=== PATIENT | male | born 1980 | race Caucasian/White ===

== ENCOUNTER 2017-04-24 20:19 | Inpatient (IN) | payer MEDICAID, OTHER ==
[2017-04-24] MEDS: HYDROCODONE/APAP (5/325) TAB PO (21:43)
[2017-04-24 22:09] LABS: ADD UMIC YES; UR ASCORBIC ACID NEGATIVE (NEGATIVE); UR BACTERIA FEW /HPF (NONE SEEN); UR BILIRUBIN (Dip) NEGATIVE (NEGATIVE); UR BLOOD (Dip) 3+ mg/dL (NEGATIVE); UR CLARITY SLIGHTLY CLOUDY (CLEAR); UR COLOR YELLOW (YELLOW); UR GLUCOSE (Dip) NEGATIVE (NEGATIVE); UR KETONES (Dip) NEGATIVE (NEGATIVE); UR LEUKOCYTE ESTERASE (Dip) NEGATIVE Leu/ul (NEGATIVE); UR NITRITE (Dip) NEGATIVE (NEGATIVE); UR RBC > 182 /HPF (0-5); UR SPECIFIC GRAVITY (Dip) 1.019 (1.003-1.030); UR TOTAL PROTEIN (Dip) 3+ mg/dl (NEGATIVE); UR UROBILINOGEN (Dip) NEGATIVE (NEGATIVE); UR WBC 10 /HPF (0-5)
[2017-04-24] MEDS: HYDROmorphONE 1 MG/ML SYG IV (22:48)
[2017-04-25] MEDS: HYDROmorphONE 0.5 MG/0.5 ML SYG IV (01:10)
[2017-04-25 01:15] LABS: ADD MAN DIFF? NO
[2017-04-25 01:16] LABS: WHITE BLOOD COUNT 14.4 10^3/ul (4.8-10.8)
[2017-04-25 01:16] LABS: BASOPHILS % 0.2 % (0.0-2.0); EOSINOPHILS % 0.1 % (0.0-7.0); HEMATOCRIT 43.9 % (42.0-52.0); HEMOGLOBIN 15.2 g/dl (14.0-18.0); LYMPHOCYTES # 1.5 10^3/ul (0.8-2.9); LYMPHOCYTES % 10.4 % (15.0-51.0); MEAN CORPUSCULAR HEMOGLOBIN 30.5 pg (29.0-33.0); MEAN CORPUSCULAR HGB CONC 34.6 g/dl (32.0-37.0); MEAN PLATELET VOLUME 10.2 fl (7.4-10.4); MONOCYTE # 0.7 10^3/ul (0.3-0.9); MONOCYTES % 4.6 % (0.0-11.0); NEUTROPHIL # 12.1 10^3/ul (1.6-7.5); NEUTROPHILS % 84.1 % (39.0-77.0); PLATELET COUNT 342 10^3/UL (140-415); RED BLOOD COUNT 4.99 10^6/ul (4.70-6.10); RED CELL DISTRIBUTION WIDTH 12.5 % (11.5-14.5)
[2017-04-25 01:36] LABS: ALANINE AMINOTRANSFERASE 62 IU/L (13-69); ALBUMIN 4.6 g/dl (3.3-4.9); ALBUMIN/GLOBULIN RATIO 1.43; ALKALINE PHOSPHATASE 82 IU/L (42-121); ANION GAP 16 (8-16); ASPARTATE AMINO TRANSFERASE 38 IU/L (15-46); BILIRUBIN,INDIRECT 0.5 mg/dl (0-1.1); BILIRUBIN,TOTAL 0.5 mg/dl (0.2-1.3); BLOOD UREA NITROGEN 18 mg/dl (7-20); CALCIUM 9.5 mg/dl (8.4-10.2); CARBON DIOXIDE 26 mmol/L (21-31); CHLORIDE 104 mmol/L (97-110); CREATININE 1.47 mg/dl (0.61-1.24); GLUCOSE 99 mg/dl (70-220); POTASSIUM 3.9 mmol/L (3.5-5.1); SODIUM 142 mmol/L (135-144); TOTAL PROTEIN 7.8 g/dl (6.1-8.1)
[2017-04-25] MEDS: HYDROmorphONE 1 MG/ML SYG IV ×5 (03:11→14:30)
[2017-04-25] MEDS: SOD CHLORIDE 0.9% 1,000 ML IV ×4 (03:16→17:36)
[2017-04-25] MEDS ORDERED: HYDROmorphONE 1 MG/ML SYG (04:12)
[2017-04-25] MEDS ORDERED: NACL 0.9% 3 ML SYG IV (05:00)
[2017-04-25] MEDS: TAMSULOSIN (SR) 0.4 MG CAP PO ×2 (05:11→20:46)
[2017-04-25 06:16] LABS: MAGNESIUM 1.7 mg/dl (1.7-2.5)
[2017-04-25 06:16] LABS: CHOL/HDL RATIO 4.4 RATIO; CHOLESTEROL 172 mg/dl (100-200); HDL CHOLESTEROL 39 mg/dl (28-63); LDL CHOLESTEROL,CALCULATED 93 mg/dl; TRIGLYCERIDES 198 mg/dl (0-149)
[2017-04-25 07:14] LABS: HEMOGLOBIN A1C 5.1 % (0-5.9)
[2017-04-25] MEDS: CEFTRIAXONE 1 GM/50 ML (PMX) 50 ML IVPB (11:41)
[2017-04-25] MEDS: HYDROmorphONE 2 MG/ML SYG IV ×2 (15:58→20:46)
[2017-04-25] MEDS: ONDANSETRON 4 MG INJ IV (17:36)
[2017-04-26] MEDS: SOD CHLORIDE 0.9% 1,000 ML IV ×3 (04:35→20:24)
[2017-04-26] MEDS: HYDROmorphONE 2 MG/ML SYG IV ×4 (05:01→20:28)
[2017-04-26 05:12] LABS: ADD MAN DIFF? NO
[2017-04-26 05:24] LABS: WHITE BLOOD COUNT 11.7 10^3/ul (4.8-10.8)
[2017-04-26 05:24] LABS: BASOPHILS % 0.2 % (0.0-2.0); EOSINOPHILS % 0.2 % (0.0-7.0); HEMATOCRIT 42.1 % (42.0-52.0); HEMOGLOBIN 13.9 g/dl (14.0-18.0); LYMPHOCYTES # 1.5 10^3/ul (0.8-2.9); LYMPHOCYTES % 12.6 % (15.0-51.0); MEAN CORPUSCULAR HEMOGLOBIN 29.4 pg (29.0-33.0); MEAN CORPUSCULAR VOLUME 89.2 fl (82.0-101.0); MEAN PLATELET VOLUME 10.1 fl (7.4-10.4); MONOCYTE # 0.9 10^3/ul (0.3-0.9); MONOCYTES % 7.9 % (0.0-11.0); NEUTROPHIL # 9.2 10^3/ul (1.6-7.5); NEUTROPHILS % 78.8 % (39.0-77.0); PLATELET COUNT 247 10^3/UL (140-415); RED BLOOD COUNT 4.72 10^6/ul (4.70-6.10); RED CELL DISTRIBUTION WIDTH 12.6 % (11.5-14.5)
[2017-04-26 05:50] LABS: PHOSPHORUS 2.8 mg/dl (2.5-4.9)
[2017-04-26 05:50] LABS: MAGNESIUM 1.9 mg/dl (1.7-2.5)
[2017-04-26 06:01] LABS: ALANINE AMINOTRANSFERASE 47 IU/L (13-69); ALBUMIN 3.9 g/dl (3.3-4.9); ALBUMIN/GLOBULIN RATIO 1.44; ALKALINE PHOSPHATASE 68 IU/L (42-121); ANION GAP 15 (8-16); ASPARTATE AMINO TRANSFERASE 24 IU/L (15-46); BILIRUBIN,INDIRECT 0.6 mg/dl (0-1.1); BILIRUBIN,TOTAL 0.6 mg/dl (0.2-1.3); BLOOD UREA NITROGEN 17 mg/dl (7-20); CALCIUM 8.9 mg/dl (8.4-10.2); CARBON DIOXIDE 25 mmol/L (21-31); CHLORIDE 103 mmol/L (97-110); CREATININE 1.72 mg/dl (0.61-1.24); GLUCOSE 102 mg/dl (70-220); POTASSIUM 3.7 mmol/L (3.5-5.1); SODIUM 139 mmol/L (135-144); TOTAL PROTEIN 6.6 g/dl (6.1-8.1)
[2017-04-26] MEDS: KETOROLAC 30 MG INJ IV (10:13)
[2017-04-26] MEDS: LACTATED RINGER'S 500 ML IV (10:14)
[2017-04-26] MEDS: CEFTRIAXONE 1 GM/50 ML (PMX) 50 ML IVPB (11:26)
[2017-04-26] MEDS: TAMSULOSIN (SR) 0.4 MG CAP PO (20:21)
[2017-04-27] MEDS: HYDROmorphONE 2 MG/ML SYG IV (01:20)
[2017-04-27] MEDS: SOD CHLORIDE 0.9% 1,000 ML IV ×3 (04:02→20:46)
[2017-04-27 05:09] LABS: ADD MAN DIFF? NO
[2017-04-27 05:23] LABS: WHITE BLOOD COUNT 14.5 10^3/ul (4.8-10.8)
[2017-04-27 05:23] LABS: BASOPHILS % 0.1 % (0.0-2.0); HEMOGLOBIN 13.4 g/dl (14.0-18.0); LYMPHOCYTES # 1.3 10^3/ul (0.8-2.9); MEAN CORPUSCULAR HEMOGLOBIN 30.7 pg (29.0-33.0); MEAN CORPUSCULAR HGB CONC 34.4 g/dl (32.0-37.0); MEAN CORPUSCULAR VOLUME 89.2 fl (82.0-101.0); MEAN PLATELET VOLUME 10.3 fl (7.4-10.4); MONOCYTE # 1.1 10^3/ul (0.3-0.9); MONOCYTES % 7.6 % (0.0-11.0); NEUTROPHILS % 82.8 % (39.0-77.0); PLATELET COUNT 220 10^3/UL (140-415); RED BLOOD COUNT 4.37 10^6/ul (4.70-6.10); RED CELL DISTRIBUTION WIDTH 12.4 % (11.5-14.5)
[2017-04-27 05:44] LABS: MAGNESIUM 1.7 mg/dl (1.7-2.5)
[2017-04-27 05:44] LABS: PHOSPHORUS 3.1 mg/dl (2.5-4.9)
[2017-04-27 05:52] LABS: ALANINE AMINOTRANSFERASE 52 IU/L (13-69); ALBUMIN 3.5 g/dl (3.3-4.9); ALBUMIN/GLOBULIN RATIO 1.25; ALKALINE PHOSPHATASE 67 IU/L (42-121); ANION GAP 12 (8-16); ASPARTATE AMINO TRANSFERASE 39 IU/L (15-46); BILIRUBIN,INDIRECT 0.4 mg/dl (0-1.1); BILIRUBIN,TOTAL 0.4 mg/dl (0.2-1.3); BLOOD UREA NITROGEN 19 mg/dl (7-20); CALCIUM 8.5 mg/dl (8.4-10.2); CARBON DIOXIDE 24 mmol/L (21-31); CHLORIDE 105 mmol/L (97-110); CREATININE 1.83 mg/dl (0.61-1.24); GLUCOSE 98 mg/dl (70-220); POTASSIUM 4.3 mmol/L (3.5-5.1); SODIUM 137 mmol/L (135-144); TOTAL PROTEIN 6.3 g/dl (6.1-8.1)
[2017-04-27] MEDS: ACETAMINOPHEN 325 MG TAB PO ×2 (08:24→18:28)
[2017-04-27] MEDS: INFLUENZA VIRUS VACCINE 0.5 ML (DISPENSING) IM* (08:25)
[2017-04-27] MEDS: CEFTRIAXONE 1 GM/50 ML (PMX) 50 ML IVPB (11:57)
[2017-04-27] MEDS: TAMSULOSIN (SR) 0.4 MG CAP PO (20:43)
[2017-04-28] MEDS: HYDROmorphONE 2 MG/ML SYG IV (01:09)
[2017-04-28] MEDS: SOD CHLORIDE 0.9% 1,000 ML IV ×2 (04:35→09:39)
[2017-04-28 05:28] LABS: ADD MAN DIFF? NO
[2017-04-28 05:36] LABS: BASOPHILS % 0.3 % (0.0-2.0); EOSINOPHILS % 0.3 % (0.0-7.0); HEMATOCRIT 39.4 % (42.0-52.0); HEMOGLOBIN 13.7 g/dl (14.0-18.0); LYMPHOCYTES # 1.7 10^3/ul (0.8-2.9); LYMPHOCYTES % 14.3 % (15.0-51.0); MEAN CORPUSCULAR HEMOGLOBIN 30.7 pg (29.0-33.0); MEAN CORPUSCULAR HGB CONC 34.8 g/dl (32.0-37.0); MEAN CORPUSCULAR VOLUME 88.3 fl (82.0-101.0); MEAN PLATELET VOLUME 10.3 fl (7.4-10.4); MONOCYTE # 0.9 10^3/ul (0.3-0.9); MONOCYTES % 7.7 % (0.0-11.0); NEUTROPHIL # 9.1 10^3/ul (1.6-7.5); NEUTROPHILS % 76.9 % (39.0-77.0); PLATELET COUNT 252 10^3/UL (140-415); RED BLOOD COUNT 4.46 10^6/ul (4.70-6.10); RED CELL DISTRIBUTION WIDTH 12.6 % (11.5-14.5)
[2017-04-28 05:36] LABS: WHITE BLOOD COUNT 11.8 10^3/ul (4.8-10.8)
[2017-04-28 06:07] LABS: ANION GAP 14 (8-16); BLOOD UREA NITROGEN 16 mg/dl (7-20); CALCIUM 8.8 mg/dl (8.4-10.2); CARBON DIOXIDE 25 mmol/L (21-31); CHLORIDE 106 mmol/L (97-110); CREATININE 1.75 mg/dl (0.61-1.24); GLUCOSE 94 mg/dl (70-220); POTASSIUM 3.7 mmol/L (3.5-5.1); SODIUM 141 mmol/L (135-144)
[2017-04-28] MEDS: ONDANSETRON 4 MG INJ IV (08:47)
[2017-04-28] MEDS: CEFTRIAXONE 1 GM/50 ML (PMX) 50 ML IVPB (11:04)
== END 2017-04-28 16:30 | disposition home or self-care (01) | DRG 683 ==
LOC: FTE 20:19 → MS1 04-25 03:06
DX: N17.9 Acute kidney failure, unspecified (principal); N39.0 Urinary tract infection, site not specified; N13.2 Hydronephrosis with renal and ureteral calculous obstruction; E66.9 Obesity, unspecified
CPT/HCPCS: 74018; 74176; 76775; 76870; 80048; 80053; 80061; 81001; 83036; 83735; 84100; 84443; 85025; 87086; 90686; 96374; 96376; 99285-25

== ENCOUNTER 2017-05-02 04:52 | Emergency (ER) | payer MEDICAID ==
[2017-05-02] MEDS: ONDANSETRON 4 MG INJ IV ×3 (06:02→09:26)
[2017-05-02] MEDS: morphine 4 MG/ML VIAL IV (06:03)
[2017-05-02 06:10] LABS: ADD MAN DIFF? NO
[2017-05-02] MEDS: BARIUM SULF 2% 450 ML BTL (BERRY SMOOTHIE) PO (07:00)
[2017-05-02 07:11] LABS: BASOPHILS % 0.2 % (0.0-2.0); EOSINOPHILS % 0.1 % (0.0-7.0); HEMATOCRIT 39.1 % (42.0-52.0); HEMOGLOBIN 13.5 g/dl (14.0-18.0); LYMPHOCYTES # 1.3 10^3/ul (0.8-2.9); LYMPHOCYTES % 8.9 % (15.0-51.0); MEAN CORPUSCULAR HEMOGLOBIN 30.3 pg (29.0-33.0); MEAN CORPUSCULAR HGB CONC 34.5 g/dl (32.0-37.0); MEAN CORPUSCULAR VOLUME 87.7 fl (82.0-101.0); MEAN PLATELET VOLUME 10.2 fl (7.4-10.4); MONOCYTE # 1.1 10^3/ul (0.3-0.9); MONOCYTES % 7.5 % (0.0-11.0); NEUTROPHIL # 11.9 10^3/ul (1.6-7.5); NEUTROPHILS % 82.7 % (39.0-77.0); PLATELET COUNT 325 10^3/UL (140-415); RED BLOOD COUNT 4.46 10^6/ul (4.70-6.10); RED CELL DISTRIBUTION WIDTH 12.6 % (11.5-14.5)
[2017-05-02 07:11] LABS: WHITE BLOOD COUNT 14.4 10^3/ul (4.8-10.8)
[2017-05-02 07:21] LABS: ADD UMIC YES; UR ASCORBIC ACID 20 mg/dL (NEGATIVE); UR BILIRUBIN (Dip) NEGATIVE (NEGATIVE); UR BLOOD (Dip) NEGATIVE (NEGATIVE); UR CLARITY CLEAR (CLEAR); UR COLOR YELLOW (YELLOW); UR GLUCOSE (Dip) NEGATIVE (NEGATIVE); UR KETONES (Dip) NEGATIVE (NEGATIVE); UR LEUKOCYTE ESTERASE (Dip) NEGATIVE Leu/ul (NEGATIVE); UR NITRITE (Dip) NEGATIVE (NEGATIVE); UR RBC 5 /HPF (0-5); UR SPECIFIC GRAVITY (Dip) 1.017 (1.003-1.030); UR TOTAL PROTEIN (Dip) 3+ mg/dl (NEGATIVE); UR UROBILINOGEN (Dip) NEGATIVE (NEGATIVE); UR WBC 0 /HPF (0-5)
[2017-05-02 07:25] LABS: ALANINE AMINOTRANSFERASE 99 IU/L (13-69); ALBUMIN 4.2 g/dl (3.3-4.9); ALBUMIN/GLOBULIN RATIO 1.23; ALKALINE PHOSPHATASE 139 IU/L (42-121); ANION GAP 15 (8-16); ASPARTATE AMINO TRANSFERASE 57 IU/L (15-46); BILIRUBIN,INDIRECT 0.3 mg/dl (0-1.1); BILIRUBIN,TOTAL 0.3 mg/dl (0.2-1.3); BLOOD UREA NITROGEN 30 mg/dl (7-20); CALCIUM 9.2 mg/dl (8.4-10.2); CARBON DIOXIDE 25 mmol/L (21-31); CHLORIDE 101 mmol/L (97-110); CREATININE 1.86 mg/dl (0.61-1.24); GLUCOSE 103 mg/dl (70-220); LIPASE 93 U/L (23-300); POTASSIUM 4.3 mmol/L (3.5-5.1); SODIUM 137 mmol/L (135-144); TOTAL PROTEIN 7.6 g/dl (6.1-8.1)
[2017-05-02] MEDS: SOD CHLORIDE 0.9% 1,000 ML IV ×3 (08:13→09:26)
[2017-05-02] MEDS: KETOROLAC 30 MG INJ IV (09:02)
[2017-05-02] MEDS: HYDROmorphONE 1 MG/ML SYG IV ×2 (09:07→09:25)
[2017-05-02] MEDS: TAMSULOSIN (SR) 0.4 MG CAP PO (10:08)
== END 2017-05-02 10:24 | disposition home or self-care (01) ==
LOC: E/R 04:52
DX: N20.0 Calculus of kidney (principal); Z87.891 Personal history of nicotine dependence
CPT/HCPCS: 36415; 74176; 80053; 81001; 83690; 85025; 96374; 96375; 96376; 99285-25